=== PATIENT | male | born 1980 | race Caucasian/White ===

== ENCOUNTER → 2019-11-22 | Outpatient (CLI) | payer BC | END | disposition home or self-care (01) | LOC: LABWHC1 11:31 | PROVIDERS: ATTEND Emergency Medicine | DX: Z20.828 Contact with and (suspected) exposure to other viral communicable diseases (principal) | CPT/HCPCS: U0003; C9803 ==

== ENCOUNTER → 2020-06-26 | Outpatient (CLI) | payer OTHER ==
--- NOTE | 2020-06-26 14:23 | XR ---
EXAMINATION TYPE: XR shoulder complete LT DATE OF EXAM: 06/26/2020 Comparison: None Clinical History: 39-year-old male S40.012A. Pain after falling injury 5 days ago. Findings: AC joint appears intact. Subacromial space is preserved. Mild sclerosis of the greater tuberosity. No tendinous or bursal calcifications. No acute fracture, subluxation, or dislocation seen. Impression: There may be some subtle changes suggesting underlying chronic rotator cuff tendinopathy. No acute os seous abnormality seen.
== END | disposition home or self-care (01) ==
LOC: RADXRMAIN 13:51
PROVIDERS: ATTEND Emergency Medicine
DX: S40.012A Contusion of left shoulder, initial encounter (principal)